=== PATIENT | male | born 1970 | race Caucasian/White ===

== ENCOUNTER 2016-10-09 19:52 | Emergency (ER) | payer OTHER ==
--- NOTE | 2016-10-09 20:03 | PDOC ---
Rapid Medical Evaluation Chief Complaint: Nausea/Vomiting Time Seen by Provider: 10/09/16 19:58 Medical Evaluation: Allergies Allergy/AdvReac Type Severity Reaction Status Date / Time No Known Allergies Allergy Verified 12/10/11 08:13 I have performed a brief in-person evaluation of this patient. The patient presents with a chief complaint of: n/v/d since last night. Pt with epigastric pain Pertinent physical exam findings: VSS I have ordered the following: cbc, comp lipase, ua The pt will be seen in the main ED.
[2016-10-09 20:12] VITALS: BP 143/94; PULSE 91; TEMP 98.4; BMI 32.8
--- NOTE | 2016-10-09 20:35 | PDOC ---
History of Present Illness - General Chief Complaint: Nausea/Vomiting Stated Complaint: VOMITING/DIARRHEA Time Seen by Provider: 10/09/16 19:58 History Source: Patient Exam Limitations: No Limitations - History of Present Illness Timing/Duration: other (yesterday) Past History - Past Medical History Allergies/Adverse Reactions: Allergies Allergy/AdvReac Type Severity Reaction Status Date / Time No Known Allergies Allergy Verified 10/09/16 20:04 Home Medications: Ambulatory Orders Diazepam [Valium] 5 mg PO DAILY PRN #7 12/10/11 Naproxen [Naprosyn -] 375 mg PO BID #30 tablet 12/10/11 - Psycho/Social/Smoking Cessation Hx Anxiety: No Suicidal Ideation: No Smoking Status: Yes Smoking History: Never smoked Have you smoked in the past 12 months: No Number of Cigarettes Smoked Daily: 0 Information on smoking cessation initiated: No Hx Alcohol Use: Yes Drug/Substance Use Hx: No Substance Use Type: None Review of Systems - Review of Systems Able to Perform ROS?: Yes Comments:: 10/09/16 20:46 CONSTITUTIONAL: Absent: fever, chills, diaphoresis, generalized weakness, malaise, loss of appetite HEENT: Absent: rhinorrhea, nasal congestion, throat pain, throat swelling, difficulty swallowing, mouth swelling, ear pain, eye pain, visual Changes CARDIOVASCULAR: Absent: chest pain, loss of consciousness, palpitations, irregular heart rate, peripheral edema RESPIRATORY: Absent: cough, shortness of breath, dyspnea with exertion, orthopnea, wheezing, stridor, hemoptysis GASTROINTESTINAL: +epigastric cramps Absent: abdominal distension, nausea, vomiting, diarrhea, constipation, melena , hematochezia GENITOURINARY: Absent: dysuria, frequency, urgency, hesitancy, hematuria, flank pain, genital pain MUSCULOSKELETAL: Absent: myalgia, arthralgia, joint swelling SKIN: Absent: rash, itching, pallor HEMATOLOGIC/IMMUNOLOGIC: Absent: easy bleeding, easy bruising, lymphadenopathy, frequent infections ENDOCRINE: Absent: unexplained weight gain, unexplained weight loss, heat intolerance, cold intolerance NEUROLOGIC: Absent: headache, focal weakness or paresthesias, dizziness, unsteady gait, seizure, mental status changes, bladder or bowel incontinence PSYCHIATRIC: Absent: anxiety, depression, suicidal or homicidal ideation, hallucinations. Is the patient limited Latvian proficient: No *Physical Exam - Vital Signs Last Vital Signs Temp Pulse Resp BP Pulse Ox 98.4 F 91 H 19 143/94 99 10/09/16 19:55 10/09/16 19:55 10/09/16 19:55 10/09/16 19:55 10/09/16 19:55 - Physical Exam Comments: 10/09/16 20:47 GENERAL: Well developed, well nourished. Awake and alert. No acute distress. HEENT: Normocephalic, atraumatic. PERRLA, EOMI. No conjunctival pallor. Sclera are non- icteric. Moist mucous membranes. Oropharynx is clear. NECK: Supple. Full ROM. No JVD. Carotid pulses 2+ and symmetric, without bruits. No thyromegaly. No lymphadenopathy. CARDIOVASCULAR: Regular rate and rhythm. No murmurs, rubs, or gallops. Distal pulses are 2+ and symmetric. PULMONARY: No evidence of respiratory distress. Lungs clear to auscultation bilaterally. No wheezing, rales or rhonchi. ABDOMINAL: Soft. Non-tender. Non-distended. No rebound or guarding. No organomegaly. Normoactive bowel sounds. MUSCULOSKELETAL Normal range of motion at all joints. No bony deformities or tenderness. No CVA tenderness. EXTREMITIES: No cyanosis. No clubbing. No edema. No calf tenderness. SKIN: Warm and dry. Normal capillary refill. No rashes. No jaundice. NEUROLOGICAL: Alert, awake, appropriate. Cranial nerves 2-12 intact. No deficits to light touch and temperature in face, upper extremities and lower extremities. No motor deficits in the in face, upper extremities and lower extremities. Normoreflexic in the upper and lower extremities. Normal speech. Toes are down- going bilaterally. Gait is normal without ataxia. PSYCHIATRIC: Cooperative. Good eye contact. Appropriate mood and affect. ED Treatment Course - LABORATORY CBC & Chemistry Diagram: 10/09/16 20:19 10/09/16 20:19 *DC/Admit/Observation/Transfer Diagnosis at time of Disposition: Gastroenteritis Nausea and vomiting Qualifiers: Vomiting type: unspecified Vomiting Intractability: non-intractable Qualified Code(s): R11.2 - Nausea with vomiting, unspecified - Discharge Dispostion Disposition: HOME Condition at time of disposition: Improved - Referrals Referrals: Malissa Jiménez MD [Primary Care Provider] - Kevin Salmon MD [Staff Physician] - - Patient Instructions Printed Discharge Instructions: DI for Nausea -- Adult, DI for Vomiting -- Adult, DI for Viral Gastroenteritis -- Adult Additional Instructions: Increase fluids return to the ER for severe/persistent/worsening symptoms Progress Note - Progress Note Progress Note: 46-year-old male presents to the emergency department complaining of epigastric cramps since last evening. Patient states she had greasy egg whites last evening at ~ 12 midnight. Shortly afterwards, he started feeling nauseous and had 2 episodes of vomiting. Patient states this morning, he felt nauseous with 4 /10 cramping nonradiating intermittent discomfort with positive diarrhea that were nonbloody and nonbilious. Patient denies any chest pain, shortness of breath, flank pain or urinary symptoms.
[2016-10-09] MEDS ORDERED: METOCLOPRAMIDE HCL INJECTION 10 MG/2 ML VIAL IVPUSH ONE (20:36)
[2016-10-09] MEDS ORDERED: SODIUM CHLORIDE 1,000 ML IV STA (20:36)
[2016-10-09 20:39] LABS: BASOPHIL 0.3 % (0-2.0); MEAN CELL VOLUME 91.2 fl (80-96); MEAN PLT VOLUME 6.8 fl (7.5-11.1); NEUTROPHILS 83.1 % (42.8-82.8); PLATELET COUNT 296 K/MM3 (134-434); RDW 14.1 % (11.9-15.9); WHITE BLOOD COUNT 9.9 K/mm3 (4.0-10.0)
[2016-10-09] MEDS ORDERED: METOCLOPRAMIDE HCL INJECTION 10 MG/2 ML VIAL ONE (20:50)
--- NOTE | 2016-10-09 20:59 | PDOC ---
[id number] 99 10/09/16 19:55 10/09/16 19:55 10/09/16 19:55 10/09/16 19:55 10/09/16 19:55 ED Treatment Course - LABORATORY CBC & Chemistry Diagram: 10/09/16 20:19 10/09/16 20:19 - ADDITIONAL ORDERS Additional order review: 10/09/16 20:19 RBC 4.67 MCV 91.2 MCHC 34.0 RDW 14.1 MPV 6.8 L Neutrophils % 83.1 H Lymphocytes % 10.0 Monocytes % 5.6 Eosinophils % 1.0 Basophils % 0.3 - Medications Given in the ED: ED Medications Discontinued Medications Generic Name Dose Route Start Last Admin Trade Name Freq PRN Reason Stop Dose Admin Metoclopramide HCl 10 mg 10/09/16 20:36 10/09/16 20:49 Reglan Injection - IVPUSH 10/09/16 20:37 10 mg ONCE ONE Administration Medical Decision Making - Medical Decision Making 10/09/16 20:58 agree with care from [facility] *DC/Admit/Observation/Transfer Diagnosis at time of Disposition: Nausea & vomiting, Gastroenteritis - Discharge Dispostion Disposition: HOME Condition at time of disposition: Improved - Referrals Referrals: Kevin Salmon MD [Staff Physician] - Malissa Jiménez MD [Primary Care Provider] - - Patient Instructions Printed Discharge Instructions: DI for Viral Gastroenteritis -- Adult, DI for Nausea -- Adult, DI for Vomiting -- Adult Additional Instructions: Increase fluids return to the ER for severe/persistent/worsening symptoms
[2016-10-09] MEDS ORDERED: RANITIDINE HCL 150 MG TABLET (FP) PO ONE (21:05)
[2016-10-09] MEDS ORDERED: MAG HYDROX/AL HYDROX/SIMETH 30 ML UNIT-DOSE CUP PO ONE (21:06)
[2016-10-09 21:15] LABS: ALBUMIN 4.2 g/dl (3.4-5.0); ALK PHOS 87 U/L (45-117); ANION GAP 8 (8-16); BILIRUBIN,TOTAL 0.6 mg/dL (0.2-1.0); CALCIUM 9.2 mg/dL (8.5-10.1); CO2 28 mmol/L (21-32); CREATININE 0.7 mg/dL (0.7-1.3); GLUCOSE,RANDOM 107 mg/dL (74-106); SGOT/AST 58 U/L (15-37); SGPT/ALT 101 U/L (12-78); TOT PROT 8.1 g/dl (6.4-8.2)
[2016-10-09 21:26] LABS: URINE APPEARANCE CLEAR; URINE BILIRUBIN NEGATIVE (NEGATIVE); URINE BLOOD NEGATIVE (NEGATIVE); URINE COLOR YELLOW; URINE GLUCOSE (UA) NEGATIVE (NEGATIVE); URINE KETONE NEGATIVE (NEGATIVE); URINE LEUK ESTERASE NEGATIVE (NEGATIVE); URINE NITRITE NEGATIVE (NEGATIVE); URINE UROBILINOGEN NEGATIVE E.U./dl (0.2-1.0)
[2016-10-09 21:35] LABS: URINE PROTEIN 1+ (NEGATIVE)
[2016-10-09 21:37] LABS: URINE BACTERIA RARE /hpf (NONE SEEN); URINE MUCUS MANY; URINE RBC 1 /hpf (0-3); URINE WBC 2 /hpf (3-5)
[2016-10-09] MEDS ORDERED: SUCRALFATE 1 GM/10 ML UNIT DOSE CUPS PO SCH (22:00)
[2016-10-09] MEDS ORDERED: MAG HYDROX/AL HYDROX/SIMETH 30 ML UNIT-DOSE CUP ONE (22:18)
[2016-10-09] MEDS ORDERED: SUCRALFATE 1 GM TABLET (FP) ONE (22:18)
[2016-10-09] MEDS ORDERED: RANITIDINE HCL 150 MG TABLET (FP) ONE (22:18)
== END 2016-10-09 23:24 | disposition home or self-care (01) ==
LOC: JER 19:52
PROC: 3E033GC Introduction of Other Therapeutic Substance into Peripheral Vein, Percutaneous Approach (ICD-10-PCS; principal; 2016-10-09)
PROC: 3E0337Z Introduction of Electrolytic and Water Balance Substance into Peripheral Vein, Percutaneous Approach (ICD-10-PCS; 2016-10-09)
DX: K52.9 Noninfective gastroenteritis and colitis, unspecified (principal); R11.2 Nausea with vomiting, unspecified
CPT/HCPCS: 36415; 80053; 81003; 81015; 83690; 85025; 99282-25

== ENCOUNTER 2020-04-20 20:53 | Emergency (ER) | payer OTHER ==
[2020-04-20 21:03] VITALS: BP 135/85; PULSE 107; TEMP 98; BMI 32.5
--- NOTE | 2020-04-20 21:43 | PDOC ---
History of Present Illness - General Chief Complaint: Rash Stated Complaint: RASH Time Seen by Provider: 04/20/20 21:12 History Source: Patient Exam Limitations: No Limitations - History of Present Illness Initial Comments: 04/20/20 21:49 HISTORY OF PRESENT ILLNESS: 50-year-old male denies medical history presents emergency department for evaluation of pruritic vesicular rash present to bilateral upper extremities and abdomen. Present for the past 5 days. Patient reports 5 days ago he was helping his with some yard work and cleaning up grabbed onto an unknown blush and started to feel a tingling sensation. He was told by his neighbors that this was poison ursula. Patient reports she has been able to control the itching but when the vesicular lesion started to drain today he started to scratch uncontrollably. He tried using calamine lotion with minimal relief of pain. No recent travel or sick contacts. PAST MEDICAL HISTORY: Denies past medical history SURGICAL HISTORY: Denies ALLERGIES: No known drug allergies REVIEW OF SYSTEMS General/Constitutional: Denies fever or chills. Denies weakness, weight change. HEENT: Denies change in vision. Denies ear pain or discharge. Denies sore throat. Cardiovascular: Denies chest pain or shortness of breath. Respiratory: Denies cough, wheezing, or hemoptysis. Gastrointestinal: Denies nausea, vomiting, diarrhea or constipation. Denies rectal bleeding. Genitourinary: Denies dysuria, frequency, or change in urination. Musculoskeletal: Denies joint or muscle swelling or pain. Denies neck or back pain. Skin and breasts: See HPI Neurologic: Denies headache, vertigo, loss of consciousness, or loss of sensation. Psychiatric: Denies depression or anxiety. Endocrine: Denies increased thirst. Denies abnormal weight change. Hematologic/Lymphatic: Denies anemia, easy bleeding, or history of blood clots. Allergic/Immunologic: Denies hives or skin allergy. Denies latex allergy. PHYSICAL EXAM General Appearance: Well-appearing, appropriately dressed. No apparent distress, no intoxication. Lymphatic: No adenopathy, tenderness. Musculoskeletal/Extremities: Normal inspection. FROM of all extremities, normal capillary refill. Pelvis Stable. No CVA tenderness. No tenderness to extremities, pedal edema, swelling, erythema or deformity. Integumentary: Scattered vesicular lesions present to bilateral upper ext remities and abdomen surrounding the umbilicus. Lesions are spontaneously draining. No erythema surrounding lesions. Has appearance of poison ursula dermatitis. Past History - Medical History Allergies/Adverse Reactions: Allergies Allergy/AdvReac Type Severity Reaction Status Date / Time No Known Allergies Allergy Verified 04/20/20 21:03 Home Medications: Ambulatory Orders Methylprednisolone [Medrol Dose Tony] 4 mg PO ASDIR #21 tablet 04/20/20 COPD: No - Immunization History Immunization Up to Date: No - Psycho-Social/Smoking History Smoking Status: Yes Smoking History: Never smoked Have you smoked in the past 12 months: No Number of Cigarettes Smoked Daily: 0 - Substance Abuse Hx (Audit-C & DAST Scrn) How often the patient has a drink containing alcohol: Never Score: In Men: 4 or > Positive; In Women: 3 or > Positive: 0 Screen Result (Pos requires Nsg. 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 Portions of this note have been documented using voice recognition software. As a result, errors may occur in the city engineer process. Effort has been made to correct all grammatical and city engineer error, but some may have been missed which may produce sporadic inaccurate city engineer or nonsensical phrases. Discharge - Discharge Information Problems reviewed: Yes Clinical Impression/Diagnosis: Toxicodendron dermatitis Condition: Stable Disposition: HOME - Admission No - Additional Discharge Information Prescriptions: Methylprednisolone [Medrol Dose Tony] 4 mg PO ASDIR #21 tablet - Follow up/Referral Referrals: Malissa Jiménez MD [Primary Care Provider] - - Patient Discharge Instructions Additional Instructions: Place one cup of raw unflavored oats into a engagement liaison room service food server salt grinder. Blend the oats into a fine powdered texture. Take these particles spread throughout bathwater Stir Until the oatmeal is thoroughly blended into the water. Soak for 15-30 minutes. Apply calamine lotion to affected areas to help relieve itching. You may take Benadryl 25 mg every 8 hours as needed for itching Take Medrol Dosepak as prescribed. Return to emergency department for any worsening itching, fevers or any other concerns. Thank you very much for choosing us to provide for emergent health care needs. Coloque etelvina taza de ani cruda sin sabor en etelvina trituradora de caf procesador de alimentos de licuadora. Mezcla la ani en etelvina textura evangelist en [place]. [place] estas partculas esparcidas por el agua de komal [place] hasta que la ani se mezcle completamente en el agua. Remoje senia 15-30 minutos. Aplique locin de calamina en las zonas afectadas para ayudar a aliviar la picazn. Puede luis Benadryl 25 mg cada 8 horas segn sea necesario para la picazn [place] Medrol Dosepak segn lo prescrito. Regrese al departamento de emergencias para cualquier empeoramiento de la picazn, fiebres o cualquier otra preocupacin. Muchas rafael por elegirnos para satisfacer las necesidades emergentes de atencin mdica. - Post Discharge Activity
== END 2020-04-20 23:59 | disposition home or self-care (01) ==
LOC: JERFT 20:53
DX: L23.7 Allergic contact dermatitis due to plants, except food (principal)
CPT/HCPCS: 99283-25

== ENCOUNTER 2022-10-18 00:53 | Emergency (ER) | payer OTHER ==
[2022-10-18 01:18] VITALS: BP 160/93; PULSE 96; RESP 18; TEMP 98.5; BMI 31.1
[2022-10-18] MEDS ORDERED: oxyCODONE HCL 5 MG TABLET PO ONE (01:21)
[2022-10-18] MEDS ORDERED: diazePAM 5 MG TABLET PO ONE (01:21)
[2022-10-18] MEDS ORDERED: LIDOCAINE 5% TOPICAL PATCH TP ONE (01:21)
[2022-10-18] MEDS ORDERED: LIDOCAINE 5% TOPICAL PATCH ONE (01:23)
[2022-10-18] MEDS ORDERED: oxyCODONE HCL 5 MG TABLET ONE (01:23)
[2022-10-18] MEDS ORDERED: diazePAM 5 MG TABLET ONE (01:23)
[2022-10-18] MEDS ORDERED: LIDOCAINE PATCH REMOVAL MC SCH (22:00)
== END 2022-10-18 02:54 | disposition home or self-care (01) ==
LOC: JER 00:53
DX: M54.50 Low back pain, unspecified (principal)
CPT/HCPCS: 99283-25

== ENCOUNTER 2023-01-09 12:39 | Emergency (ER) | payer OTHER ==
[2023-01-09 12:48] VITALS: BP 157/94; PULSE 92; RESP 17; TEMP 98.3; BMI 33.1
[2023-01-09] MEDS ORDERED: LIDOCAINE 5% TOPICAL PATCH TP ONE (13:24)
[2023-01-09] MEDS ORDERED: ACETAMINOPHEN 500 MG TABLET (FP) PO ONE (13:24)
[2023-01-09] MEDS ORDERED: KETOROLAC TROMETHAMINE 30 MG/1 ML VIAL IM ONE (13:24)
[2023-01-09] MEDS ORDERED: ACETAMINOPHEN 500 MG TABLET (FP) ONE (13:29)
[2023-01-09] MEDS ORDERED: LIDOCAINE 5% TOPICAL PATCH ONE (13:29)
[2023-01-09] MEDS ORDERED: KETOROLAC TROMETHAMINE 30 MG/1 ML VIAL ONE (13:29)
[2023-01-09] MEDS ORDERED: LIDOCAINE PATCH REMOVAL MC SCH (22:00)
== END 2023-01-09 15:13 | disposition home or self-care (01) ==
LOC: JER 12:39 → JERFT 12:39
PROC: 3E0233Z Introduction of Anti-inflammatory into Muscle, Percutaneous Approach (ICD-10-PCS; principal; 2023-01-09)
DX: M54.50 Low back pain, unspecified (principal)
CPT/HCPCS: 99284-25

== ENCOUNTER 2023-01-21 09:41 | Emergency (ER) | payer OTHER ==
[2023-01-21 09:49] VITALS: BP 155/90; PULSE 72; RESP 18; TEMP 98; BMI 34.2
[2023-01-21] MEDS ORDERED: IBUPROFEN 600 MG TABLET (FP) PO ONE ×2 (10:08→10:11)
[2023-01-21] MEDS ORDERED: LORATADINE 10 MG TABLET PO ONE (10:08)
[2023-01-21] MEDS ORDERED: LORATADINE 10 MG TABLET ONE (10:11)
== END 2023-01-21 10:23 | disposition home or self-care (01) ==
LOC: JERFT 09:41 → JER 09:41 → JERFT 10:23
DX: H92.02 Otalgia, left ear (principal); H60.92 Unspecified otitis externa, left ear
CPT/HCPCS: 99283-25

== ENCOUNTER 2024-08-14 04:40 | Emergency (ER) | payer OTHER ==
[2024-08-14 05:00] VITALS: BP 132/82; PULSE 78; RESP 18; TEMP 98.6; BMI 32.6
[2024-08-14] MEDS ORDERED: IBUPROFEN 400 MG TABLET (FP) PO ONE (05:28)
[2024-08-14] MEDS: IBUPROFEN 400 MG TABLET (FP) PO ONE (05:28)
== END 2024-08-14 06:24 | disposition home or self-care (01) ==
LOC: JER 04:40
DX: M25.571 Pain in right ankle and joints of right foot (principal); M25.471 Effusion, right ankle
CPT/HCPCS: 73610-TC-RT-FY; 73630-TC-RT-FY; 99283-25